=== PATIENT | female | born 1995 | race Two or more races ===

== ENCOUNTER 2020-04-09 05:28 | Inpatient (IN) | payer MEDICAID, OTHER ==
[~2020-04-09] VITALS: Ht 149.9 cm; Wt 53.1 kg
[2020-04-09] MEDS ORDERED: LACTATED RINGER'S 1,000 ML IV SCH (05:53)
[2020-04-09] MEDS ORDERED: LACT. RINGERS/OXYTOCIN 20UNITS 1,000 ML IV SCH (05:53)
[2020-04-09] MEDS ORDERED: WITCH HAZEL-GLYCERIN PAD TOP PRN (06:00)
[2020-04-09] MEDS ORDERED: DERMOPLAST 60ML BOTTLE TOP PRN (06:00)
[2020-04-09] MEDS ORDERED: LIDOCAINE 2%HCL (LOCAL ANESTH.) INJ 20ML MDV ID ONE (06:00)
[2020-04-09] MEDS ORDERED: PENICILLIN G POT 5MIL/D5 50ML 50 ML IV ONE (06:00)
[2020-04-09] MEDS ORDERED: PHISODERM TOP SOLN 240ML BTL TOP PRN (06:00)
[2020-04-09] MEDS ORDERED: METHYLERGONOVINE MALEATE 0.2 MG/ML AMP IM PRN (06:00)
[2020-04-09] MEDS ORDERED: CARBOPROST TROMETHAMINE 250 MCG/1ML VIAL IM PRN (06:00)
[2020-04-09] MEDS ORDERED: PREN-96 PO (06:56)
[2020-04-09 07:38] LABS: Basophils # (auto) 0 10 ^3/uL (0-0.2); Basophils % (auto) 0.2 % (0.0-2.0); Eosinophils # (auto) 0 10 ^3/uL (0-0.8); Eosinophils % (auto) 0.3 % (0.0-7.0); Hematocrit 34.9 % (36.0-46.0); Hemoglobin 11.5 g/dL (12.2-16.2); Lymphocytes # (auto) 2.3 10 ^3/uL (0.4-5.4); Lymphocytes % (auto) 17.5 % (10.0-50.0); Mean Corpuscular Hemoglobin 30.4 pg (28.0-32.0); Mean Corpuscular Hgb Conc. 33.1 g/dL (32.0-36.0); Monocytes # (auto) 1.2 10 ^3/uL (0-1.3); Monocytes % (auto) 8.8 % (0.0-12.0); Neutrophils # (auto) 9.8 10 ^3/uL (1.6-8.6); Neutrophils % (auto) 73.2 % (37.0-80.0); Nucleated Red Blood Cells % 0.1 %; Platelet Count (auto) 212 10^3/uL (140-450); Red Blood Cells 3.79 10^6/uL (4.0-5.20); Red Cell Distribution Width 13.8 % (11.8-14.3); White Blood Cell 13.3 10^3/uL (4.4-10.8)
[2020-04-09 07:48] LABS: Urine Bacteria NONE SEEN /hpf (None Seen); Urine Blood 3+ /uL (Negative); Urine Mucus FEW (None Seen); Urine Specific Gravity 1.008 (1.001-1.035); Urine WBC 10 /hpf (0 - 5)
[2020-04-09] MEDS ORDERED: ceFAZolin 1GM/50ML 50 ML IV ONE (07:50)
[2020-04-09 07:56] LABS: INR 0.97 (0.9-1.15); Partial Thromboplastin Time 27.8 sec (23.0-31.2)
[2020-04-09 08:05] LABS: Albumin 2.9 g/dL (3.4-5.0); Calcium 8.6 mg/dL (8.5-10.1); Potassium 3.4 mmol/L (3.5-5.1)
[2020-04-09 08:09] LABS: Bilirubin, Total 0.4 mg/dL (0.2-1.0); Total Protein 6.4 g/dL (6.4-8.2)
[2020-04-09] MEDS ORDERED: PENICILLIN G POTASSIUM 2,500,000 UNITS in D5W 5% 50 ML IV SCH (10:00)
[2020-04-09] MEDS ORDERED: LACT. RINGERS/OXYTOCIN 20UNITS 500 ML IV ONE (10:10)
[2020-04-09] MEDS ORDERED: ACETAMINOPHEN 325 MG TAB PO PRN (10:15)
[2020-04-09] MEDS ORDERED: IBUPROFEN 600 MG TAB PO PRN (10:15)
[2020-04-09] MEDS ORDERED: miSOPROStol 100 mcg TAB SL ONE (10:45)
[2020-04-09] MEDS ORDERED: miSOPROStol 100 mcg TAB PR ONE (10:45)
[2020-04-09] MEDS ORDERED: ceFAZolin 1GM/50ML 50 ML IV SCH (14:00)
[2020-04-09 15:36] VITALS: BP 114/62
[2020-04-09 19:20] VITALS: BP 114/62
[2020-04-09 23:30] VITALS: BP 107/54
[2020-04-10 03:30] VITALS: BP 107/54
[2020-04-10 06:45] VITALS: BP 100/57
[2020-04-10] MEDS ORDERED: DOCUSATE CALCIUM 240 MG CAP PO SCH (10:00)
[2020-04-10 12:00] VITALS: BP 115/67
[2020-04-11 07:06] LABS: RPR Non Reactive (Non Reactive)
[2020-04-11 08:06] LABS: Rubella Antibodies, IgG 4.66 index (Immune >0.99)
== END 2020-04-10 14:10 | disposition home or self-care (01) | DRG 560 ==
LOC: LDRP 05:28 → OBSVTOIN 05:28 → LDRP 05:53
PROVIDERS: ADMIT Specialist; ATTEND Specialist
PROC: 10E0XZZ Delivery of Products of Conception, External Approach (ICD-10-PCS; principal; 2020-04-09)
PROC: 0W8NXZZ Division of Female Perineum, External Approach (ICD-10-PCS; 2020-04-09)
DX: O42.913 Preterm premature rupture of membranes, unspecified as to length of time between rupture and onset of labor, third trimester (principal); Z3A.36 36 weeks gestation of pregnancy; Z37.0 Single live birth; Z11.59 Encounter for screening for other viral diseases
CPT/HCPCS: 36415; 59025; 59409; 76805; 80053; 81001; 84112; 85025; 85610; 85730; 86592; 86703; 86762; 86850; 86900; 86901; 87340; 96360; 96365; 96366; G0378; J0690; J2590

== ENCOUNTER 2023-04-07 09:54 | Emergency (ER) | payer MEDICAID ==
[~2023-04-07] VITALS: Ht 149.9 cm; Wt 53.0 kg
[~2023-04-07 09:54] MED LIST: PREN-96 PO
[2023-04-07 10:10] LABS: Basophils # (auto) 0 10 ^3/uL (0-0.2); Basophils % (auto) 0.3 % (0.0-2.0); Eosinophils # (auto) 0.1 10 ^3/uL (0-0.8); Eosinophils % (auto) 0.6 % (0.0-7.0); Hematocrit 40.8 % (36.0-46.0); Hemoglobin 13.4 g/dL (12.2-16.2); Lymphocytes # (auto) 2.4 10 ^3/uL (0.4-5.4); Lymphocytes % (auto) 20.9 % (10.0-50.0); Mean Corpuscular Hemoglobin 29.5 pg (28.0-32.0); Mean Corpuscular Hgb Conc. 32.9 g/dL (32.0-36.0); Mean Corpuscular Volume 89.6 fL (80.0-100.0); Monocytes # (auto) 0.5 10 ^3/uL (0-1.3); Monocytes % (auto) 4.6 % (0.0-12.0); Neutrophils # (auto) 8.5 10 ^3/uL (1.6-8.6); Neutrophils % (auto) 73.6 % (37.0-80.0); Red Blood Cells 4.55 10^6/uL (4.0-5.20); Red Cell Distribution Width 14.4 % (11.8-14.3); White Blood Cell 11.5 10^3/uL (4.4-10.8)
[2023-04-07 10:50] LABS: Albumin 3.6 g/dL (3.4-5.0); Calcium 8.8 mg/dL (8.5-10.1); Magnesium 2.9 mg/dL (1.6-2.6); Potassium 3.6 mmol/L (3.5-5.1)
[2023-04-07 10:56] LABS: BUN/Creatinine Ratio 7.9 (10.0-20.0); Bilirubin, Total 0.4 mg/dL (0.2-1.0); Total Protein 7.8 g/dL (6.4-8.2)
[2023-04-07 11:18] LABS: Urine Bacteria FEW /hpf (None Seen); Urine Blood 3+ /uL (Negative); Urine Budding Yeast FEW /hpf (None Seen); Urine Clarity HAZY (Clear); Urine Color PINK (Yellow); Urine Mucus FEW (None Seen); Urine Protein, UAD 1+ (Negative); Urine Specific Gravity 1.017 (1.001-1.035); Urine Urobilinogen Normal (Negative); Urine WBC 4 /hpf (0 - 5); Urine pH 8.5 (5.0-8.0)
[2023-04-07] MEDS ORDERED: ASPirin 325 MG TAB PO ONE (13:00)
[2023-04-07] MEDS ORDERED: cefTRIAXone SOD 1,000 MG VL IM ONE (13:00)
[2023-04-07 14:30] VITALS: BP 123/71; PULSE 60; RESP 18; TEMP 97.5; O2SAT 100
== END 2023-04-07 14:33 | disposition home or self-care (01) ==
LOC: ER 09:54
DX: R07.89 Other chest pain (principal); R11.2 Nausea with vomiting, unspecified; Z79.899 Other long term (current) drug therapy
CPT/HCPCS: 36415; 71045; 80053; 81001; 81025; 83735; 84484; 85025; 93005; 96372; 99285; J0696